=== PATIENT | female | born 1955 | race Caucasian/White ===

== ENCOUNTER 2021-02-25 20:04 | Emergency (ER) | payer MEDICARE ==
[~2021-02-25] VITALS: Ht 182.9 cm; Wt 77.1 kg
[~2021-02-25 20:04] MED LIST: AMLODIPINE BESYL5 MG PO; CHLORDIAZEPOXID25 M1 PO; CYCLOBENZAPRINE10 MG PO; FOLIC ACID1 MG PO; GABAPENTIN400 MG PO; LOPRESSOR OR; METHOTREXATE 22.5 MG GT; NORCO 5-325 TA1 EACH PO; PERCOCET 5-3251 EACH PO; PREDNISONE 20 M20 MG PO; SKELAXIN 800 M800 MG PO
[2021-02-25 20:58] LABS: ABSOLUTE NEUTROPHILS 5.5 thou/uL (1.4-8.2); BASOPHILS 0.6 % (0.0-2.0); EOSINOPHILS 0.8 % (0.0-3.0); HEMATOCRIT 55.3 % (37.0-47.0); HEMOGLOBIN 18.2 gm/dL (12.0-15.0); LYMPHOCYTES 18.1 % (24.0-44.0); MCH 33.5 pg (26.0-34.0); MCV 101.6 fL (80.0-100.0); MONOCYTES 12.2 % (1.0-8.0); PLATELET COUNT 310 thou/uL (150-400); POLYS 68.3 % (36.0-66.0); RBC 5.45 mil/uL (4.20-5.00); RDW 13.4 % (10.5-14.5); WBC 8.1 thou/uL (4.0-11.0)
[2021-02-25 21:06] LABS: CALCIUM 10.8 mg/dL (8.5-10.1); CREATININE 1.6 mg/dL (0.6-1.0); POTASSIUM 3.3 mmol/L (3.5-5.1)
[2021-02-25 21:16] LABS: ALBUMIN 4.4 g/dL (3.4-5.0); TOTAL PROTEIN 9.2 g/dL (6.4-8.2)
[2021-02-25 21:44] LABS: URINE BILIRUBIN 2+ (Negative); URINE BLOOD 3+ (Negative); URINE CLARITY CLEAR; URINE COLOR YELLOW; URINE GLUCOSE-RANDOM* NEGATIVE (Negative); URINE KETONES NEGATIVE (Negative); URINE LEUKOCYTES-REFLEX NEGATIVE (Negative); URINE NITRITE-REFLEX NEGATIVE (Negative); URINE PROTEIN (DIPSTICK) 2+ (Negative); URINE SPECIFIC GRAVITY >= 1.030 (1.005-1.035); URINE UROBILINOGEN 0.2 E.U./dl (0.2-1.0)
[2021-02-25 21:55] LABS: HYALINE CASTS 4-10 Moderate /LPF (None Seen); SQUAMOUS 4-10 Moderate /LPF (0-3)
[2021-02-25 21:56] LABS: BACTERIA-REFLEX 1-9 Few /HPF (None Seen); CRYSTALS None Seen /LPF (None Seen); URINE WBC-REFLEX 0-5 Rare /HPF (0-5)
[2021-02-25 22:13] LABS: URINE RBC 1-2 Rare /HPF (NONE SEEN)
[2021-02-26 06:00] VITALS: BP 151/76
--- NOTE | 2021-02-26 07:56 | EKG ---
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 : 1955 Requested By: Nile Padilla Order Number: [id number] MD: Flavio Maxwell Measurements Intervals [place] Rate: 72 P: 14 DC: 152 QRS: -25 QRSD: 89 T: 30 QT: 397 QTc: 435 Interpretive Statements Sinus rhythm Probable left atrial enlargement Borderline left axis deviation No previous ECG available for comparison Electronically Signed On 02-26-2021 7:56:21 [employer]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
== END 2021-02-26 06:00 | disposition home or self-care (01) ==
LOC: ER 20:04
PROVIDERS: Emergency Medicine
DX: R07.89 Other chest pain (principal); Z20.822 Contact with and (suspected) exposure to COVID-19; I10 Essential (primary) hypertension; Z90.49 Acquired absence of other specified parts of digestive tract; Z90.710 Acquired absence of both cervix and uterus; Z79.899 Other long term (current) drug therapy; Z88.6 Allergy status to analgesic agent